=== PATIENT | male | born 1960 | race Caucasian/White ===

== ENCOUNTER → 2017-11-21 11:59 | Outpatient (CLI) | payer BC, SELFPAY ==
[2017-11-21 13:36] LABS: Hemoglobin A1C% w Est Avg Glu 5.5 % (4.0-6.0)
[2017-11-21 19:33] LABS: Thyroid Stimulating Hormone 1.27 uIU/mL (0.47-4.68)
== END ==
PROVIDERS: Family Provider Physician Assistant; PCP Physician Assistant; Visit Provider Internal Medicine Cardiovascular Disease
DX: E78.5 Hyperlipidemia, unspecified (principal); R00.0 Tachycardia, unspecified; I10 Essential (primary) hypertension
CPT/HCPCS: 36415; 83036; 83735; 84443

== ENCOUNTER → 2018-06-23 07:46 | Outpatient (CLI) | payer OTHER, SELFPAY ==
--- NOTE | 2018-06-23 | DI.ECHO.S_ITS ---
[facility]---------+ [facility] +---------+ : : [address] : : : : [id number] : : : : Phone: [phone] : : [phone] +---------+ Echocardiogram Report + + :Name: IGNACIA THORNTON Study Date: 06/23/2018 Height: 67 in : :[facility] Weight: 145 lb : : Gender: Male BSA: 1.8 m2 : :: 1960 Age: 57 yrs BP: 120/76 mmHg: :Reason For Study: Mitral Valve - Annulus Repair/Replacement : : Performed By: Carley Christine : :Referring: JAQUAN GLORIA : + + Interpretation Summary The left ventricle is normal in size. The ejection fraction is estimated to be 55-60%. The right ventricle is normal size. The right ventricular systolic function is normal. An annuloplasty ring is noted in the mitral position. There is trace mitral regurgitation. No significant mitral valve stenosis. The IVC is of normal diameter and collapses greater than 50% with a sniff. This suggests a low right atrial pressure of 3 mm Hg. Procedure: A two-dimensional transthoracic echocardiogram with color flow and Doppler was performed. The study quality was technically adequate. There is no prior echocardiogram noted for this patient. The patient was in normal sinus rhythm during the exam. Left Ventricle: The left ventricle is normal in size. Proximal septal thickening is noted. There is no echo evidence for significant left ventricular outflow tract obstruction. There is no thrombus. The ejection fraction is estimated to be 55-60%. Septal motion is consistent with post- operative state. MV E/A: 0.94 Med Peak E' Brian: 5.5 cm/sec E/E' med: 21.5. Right Ventricle: The right ventricle is normal size. The right ventricular systolic function is normal. Atria: The left atrium is mildly dilated. Right atrial size is normal. The interatrial septum is intact with no evidence for an atrial septal defect. Mitral Valve: An annuloplasty ring is noted in the mitral position. No significant mitral valve stenosis. There is trace mitral regurgitation. Aortic Valve: The aortic valve is trileaflet. The aortic valve opens well. There is no aortic valve stenosis. No aortic regurgitation is present. Tricuspid Valve: The tricuspid valve is normal in structure and function. There is trace tricuspid regurgitation. Pulmonary artery pressures cannot be estimated because of the lack of a measurable TR jet velocity. Pulmonic Valve: The pulmonic valve is not well seen, but is grossly normal. There is trace pulmonic regurgitation. Great Vessels: The aortic root is normal size. The ascending aorta is normal in size. The aortic arch is at the upper limits of normal in size. The IVC is of normal diameter and collapses greater than 50% with a sniff. This suggests a low right atrial pressure of 3 mm Hg. Pericardium/ Pleura There is no pericardial effusion. There is no pleural effusion. MMode/2D Measurements & Calculations LVIDd: 4.6 cm Ao root diam: 3.5 cm LVIDs: 3.2 cm Aortic Jxn: 2.8 cm FS: 31.1 % asc Aorta Diam: 3.3 cm EPSS: 0.53 cm Ao Arch Diam (Prox Trans): 3.1 cm IVSd: 0.90 cm LVPWd: 0.67 cm LV chaparro. diameter/BSA (cm/m^2): 2.6 LV sys. diameter/BSA (cm/m^2): 1.8 LA dimension: 3.7 cm RA long axis: 4.9 cm LA A2 area: 23.1 cm2 RA area: 16.1 cm2 LA A4 area: 21.3 cm2 RA vol: 45.0 ml LA length (vol): 5.6 cm RA : 25.5 ml/m2 LA vol: 74.0 ml IVC diam: 1.7 cm LA vol index: 42.0 ml/m2 RVDd major: 5.6 cm RVD1 (basal): 3.8 cm RVD2 (mid): 3.4 cm Doppler Measurements & Calculations Ao V2 max: 117.5 cm/sec MV E max brian: 117.8 cm/sec Ao V2 mean: 82.0 cm/sec MV A max brian: 124.8 cm/sec Ao max P.5 mmHg MV E/A: 0.94 Ao mean P.1 mmHg Med Peak E' Brian: 5.5 cm/sec Ao V2 VTI: 25.9 cm E/E' med: 21.5 Lat Peak E' Brian: 8.6 cm/sec E/E' lat: 13.6 E/e' average: 17.6 MV dec time: 0.33 sec MV P1/2t: 96.5 msec PA V2 max: 76.2 cm/sec MV P1/2t max brian: 117.9 cm/sec PA V2 mean: 54.3 cm/sec MVA(P1/2t): 2.3 cm2 PA mean P.3 mmHg PA Accel Time: 0.17 sec Reading Physician:TERESA
== END ==
PROVIDERS: PCP Internal Medicine; Visit Provider Internal Medicine Cardiovascular Disease
DX: Z98.890 Other specified postprocedural states (principal)
CPT/HCPCS: 93306

== ENCOUNTER → 2019-06-19 08:55 | Outpatient (CLI) | payer OTHER, SELFPAY ==
--- NOTE | 2019-06-19 | DI.ECHO.S_ITS ---
[place] +---------+ Hospital +---------+ : : [address] : [address] : : : : [id number] : : : : Phone: [phone] : [phone] +---------+ Echocardiogram Report + + :Name: IGNACIA THORNTON Study Date: 06/19/2019 Height: 67 in : :[facility] Weight: 150 lb : : Gender: Male BSA: 1.8 m2 : :: 1960 Age: 58 yrs BP: 110/68 mmHg: :Reason For Study: Mitral insufficiency : :Ordering Physician: Jaquan : :Jaden Gloria Performed By: Addie Daly : :Referring: JAQUAN GLORIA : + + Interpretation Summary The left ventricle is normal in size and wall thickness. The ejection fraction is estimated to be 50-55%. There has been no significant change in LVEF since the previous exam. Diastolic parameters suggest a pseudonormalization pattern, consistent with probable elevated filling pressures. The right ventricle is normal in size and function. An annuloplasty ring is noted in the mitral position. There is trace mitral regurgitation. No significant mitral valve stenosis. The IVC is of normal diameter and collapses greater than 50% with a sniff. This suggests a low right atrial pressure of 3 mm Hg. Procedure: A two-dimensional transthoracic echocardiogram with color flow and Doppler was performed. The study quality was technically adequate. Comparison is made with the echocardiogram of 06/23/2018. The patient was in normal sinus rhythm during the exam. Left Ventricle: The left ventricle is normal in size and wall thickness. A false chord is noted (normal variant). The ejection fraction is estimated to be 50-55%. There has been no significant change since the previous exam. Septal motion is consistent with post-operative state. Diastolic parameters suggest a pseudonormalization pattern, consistent with probable elevated filling pressures. Right Ventricle: The right ventricle is normal in size and function. Atria: The left atrium is mildly dilated. There has been no significant change since the previous study. Right atrial size is normal. There is no Doppler evidence for an interatrial shunt. Mitral Valve: An annuloplasty ring is noted in the mitral position. Redundant elongated chordae are noted. No significant mitral valve stenosis. There is trace mitral regurgitation. Aortic Valve: The aortic valve is trileaflet. The aortic valve opens well. There is no aortic valve stenosis. No aortic regurgitation is present. Tricuspid Valve: The tricuspid valve is normal in structure and function. Pulmonary artery pressures cannot be estimated because of the lack of a measurable TR jet velocity but the IVC suggests a CVP of around 3 mmHg. There is trace tricuspid regurgitation. Pulmonic Valve: The pulmonic valve is not well seen, but is grossly normal. There is no pulmonic valvular regurgitation. Great Vessels: The aortic root is not well visualized. The ascending aorta is at the upper limits of normal in size. The IVC is of normal diameter and collapses greater than 50% with a sniff. This suggests a low right atrial pressure of 3 mm Hg. Pericardium/ Pleura There is no pericardial effusion. There is no pleural effusion. MMode/2D Measurements & Calculations LVIDd: 4.8 cm LVOT diam: 2.2 cm LVIDs: 3.2 cm Ao root diam: 3.2 cm FS: 32.6 % asc Aorta Diam: 3.5 cm EPSS: 1.3 cm Ao Arch Diam (Prox Trans): 3.0 cm IVSd: 0.77 cm LVPWd: 0.92 cm LV chaparro. diameter/BSA (cm/m^2): 2.7 LV sys. diameter/BSA (cm/m^2): 1.8 LA A2 area: 21.2 cm2 RA long axis: 4.8 cm LA A4 area: 20.1 cm2 RA area: 14.3 cm2 LA length (vol): 5.6 cm RA vol: 36.4 ml LA vol: 65.1 ml RA : 20.3 ml/m2 LA vol index: 36.4 ml/m2 IVC diam: 1.5 cm RVD1 (basal): 3.1 cm TAPSE: 1.9 cm Doppler Measurements & Calculations Ao V2 max: 109.5 cm/sec LVOT Max Brian: 83.4 cm/sec Ao V2 mean: 74.3 cm/sec LV V1 max P.8 mmHg Ao max P.8 mmHg LV V1 VTI: 17.8 cm Ao mean P.5 mmHg KIRBY(I,D): 3.0 cm2 Ao V2 VTI: 23.8 cm KIRBY(V,D): 3.0 cm2 sev ratio: 0.75 KIRBY indexed to BSA (cm^2/m^2): 1.7 MV E max brian: 147.8 cm/sec PA V2 max: 70.4 cm/sec MV A max brian: 89.1 cm/sec PA V2 mean: 51.6 cm/sec MV E/A: 1.7 PA mean P.2 mmHg Med Peak E' Brian: 5.4 cm/sec E/E' med: 27.2 Lat Peak E' Brian: 9.4 cm/sec E/E' lat: 15.6 E/e' average: 21.4 MV dec time: 0.35 sec MVA(VTI): 1.6 cm2 MR ERO: 0.24 cm2 MV V2 mean: 72.7 cm/sec MR PISA: 3.4 cm2 MV mean P.6 mmHg MR flow rate: 126.2 cm3/sec MV V2 VTI: 44.3 cm MR PISA radius: 0.74 cm SV(LVOT): 70.5 ml Reading Physician:01:07 PM
== END ==
PROVIDERS: PCP Internal Medicine; Referring Provider Internal Medicine Cardiovascular Disease; Visit Provider Internal Medicine Cardiovascular Disease
DX: I34.0 Nonrheumatic mitral (valve) insufficiency (principal)
CPT/HCPCS: 93306

== ENCOUNTER → 2020-07-14 08:01 | Outpatient (CLI) | payer OTHER, SELFPAY ==
--- NOTE | 2020-07-14 08:06 | DI.ECHO.S_ITS ---
[place] +---------+ Hospital +---------+ : : [address] : [address] : : : : [id number] : : : : Phone: [phone] : : [phone] +---------+ Echocardiogram Report + + :Name: IGNACIA THORNTON Study Date: 07/14/2020 Height: 67 in : :[facility] ReadingLocation: Weight: 150 lb : : Gender: Male BSA: 1.8 m2 : :: 1960 Age: 59 yrs BP: 142/68 mmHg: :Reason For Study: MITRAL INSUFFICIENCY : :Ordering Physician: FAIZAN, : :JAQUAN Performed By: Addie Daly : :Referring: JAQUAN GLORIA : + + Interpretation Summary The left ventricle is normal in size. The ejection fraction is estimated to be 55-60%. Diastolic parameters suggest a pseudonormalization pattern, consistent with probable elevated filling pressures. There has been no significant change since the previous study. The right ventricle is normal in size and function. An annuloplasty ring is noted in the mitral position. There is trace mitral regurgitation. No significant mitral valve stenosis. The IVC is of normal diameter and collapses greater than 50% with a sniff. This suggests a low right atrial pressure of 3 mm Hg. Procedure: A two-dimensional transthoracic echocardiogram with color flow and Doppler was performed. The study quality was technically adequate. Comparison is made with the echocardiogram of 06/19/2019. The patient was in sinus rhythm with heart rates between 60-67 bpm during the exam. Left Ventricle: The left ventricle is normal in size. Proximal septal thickening is noted. There is no echo evidence for significant left ventricular outflow tract obstruction. There is no thrombus. The ejection fraction is estimated to be 55-60%. Septal motion is consistent with post- operative state. Diastolic parameters suggest a pseudonormalization pattern, consistent with probable elevated filling pressures. There has been no significant change since the previous study. Right Ventricle: The right ventricle is normal in size and function. Atria: The left atrial size is normal. The left atrium has mildly decreased in size since the prior echo exam. Right atrial size is normal. There is no Doppler evidence for an interatrial shunt. Mitral Valve: An annuloplasty ring is noted in the mitral position. Redundant elongated chordae are noted. No significant mitral valve stenosis. There is trace mitral regurgitation. Aortic Valve: The aortic valve is trileaflet. The aortic valve opens well. There is mild aortic valve sclerosis. There is no aortic valve stenosis. No aortic regurgitation is present. Tricuspid Valve: The tricuspid valve is normal in structure and function. There is trace tricuspid regurgitation. Pulmonary artery pressures cannot be estimated because of the lack of a measurable TR jet velocity. Pulmonic Valve: The pulmonic valve leaflets are thin and pliable; valve motion is normal. There is no pulmonic valvular regurgitation. Great Vessels: The aortic root is normal size. The ascending aorta is at the upper limits of normal in size. The IVC is of normal diameter and collapses greater than 50% with a sniff. This suggests a low right atrial pressure of 3 mm Hg. Pericardium/ Pleura There is no pericardial effusion. There is no pleural effusion. MMode/2D Measurements & Calculations LVIDd: 5.1 cm LVOT diam: 2.2 cm LVIDs: 3.2 cm Ao root diam: 3.6 cm FS: 36.5 % asc Aorta Diam: 3.5 cm EPSS: 0.56 cm Ao Arch Diam (Prox Trans): 3.1 cm IVSd: 0.88 cm LVPWd: 0.93 cm LV chaparro. diameter/BSA (cm/m^2): 2.8 LV sys. diameter/BSA (cm/m^2): 1.8 LA A2 area: 18.7 cm2 RA long axis: 4.6 cm LA A4 area: 19.5 cm2 RA area: 14.6 cm2 LA length (vol): 5.5 cm RA vol: 39.6 ml LA vol: 55.8 ml RA : 22.1 ml/m2 LA vol index: 31.2 ml/m2 IVC diam: 1.6 cm RVD1 (basal): 3.0 cm TAPSE: 1.8 cm Doppler Measurements & Calculations Ao V2 max: 109.0 cm/sec LVOT Max Brian: 74.5 cm/sec Ao V2 mean: 76.6 cm/sec LV V1 max P.2 mmHg Ao max P.8 mmHg LV V1 VTI: 17.8 cm Ao mean P.6 mmHg KIRBY(I,D): 2.7 cm2 Ao V2 VTI: 24.5 cm KIRBY(V,D): 2.5 cm2 sev ratio: 0.73 KIRBY indexed to BSA (cm^2/m^2): 1.5 MV E max brian: 140.5 cm/sec PA V2 max: 107.8 cm/sec MV A max brian: 105.6 cm/sec PA V2 mean: 74.9 cm/sec MV E/A: 1.3 PA mean P.6 mmHg Med Peak E' Brian: 5.8 cm/sec PA pr(Accel): 27.6 mmHg E/E' med: 24.2 Lat Peak E' Brian: 9.5 cm/sec E/E' lat: 14.8 E/e' average: 19.5 MV dec time: 0.34 sec MVA(VTI): 1.4 cm2 MV V2 mean: 84.3 cm/sec SV(LVOT): 65.3 ml MV mean P.3 mmHg MV V2 VTI: 46.5 cm Reading Physician:06:29 PM
== END ==
PROVIDERS: PCP Internal Medicine; Referring Provider Internal Medicine Cardiovascular Disease; Visit Provider Internal Medicine Cardiovascular Disease
DX: I34.0 Nonrheumatic mitral (valve) insufficiency (principal); Z98.890 Other specified postprocedural states
CPT/HCPCS: 93306